=== PATIENT | female | born 1980 | race Caucasian/White ===

== ENCOUNTER → 2025-05-24 | Outpatient (CLI) | payer OTHER ==
[~2025-05-24] MED LIST: AMINO ACID PO; AMOX500 PO; ANTOXYBENA RIGHTEAR; CEPH500 PO; CLIN300 PO; DOCU100 PO; HYDACE25S PR; HYDACE5 PO; HYDCOR2.5C PR; IBUP800 PO; LIDO2L MM; METERG.2 PO; MULVITMINE PO; ONDA4 PO; PROM25 PO; SULTRIDS PO; VITAMIN B-50 C0.4 MG PO; Verotin-Gr Cap1 EACH PO; [UNRECOGNIZED DRUG - OTHER]
== END | disposition home or self-care (01) ==
LOC: LAB 08:10 → LAB SHORT 08:10
PROVIDERS: Physician Assistant
DX: Z01.419 Encounter for gynecological examination (general) (routine) without abnormal findings (principal)
CPT/HCPCS: 87624; G0145